=== PATIENT | male | born 1945 | race Caucasian/White ===

== ENCOUNTER 2018-11-25 07:24 | Day surgery (SDC) | payer MEDICARE, BC ==
[2018-11-22 13:38] VITALS: BMI 29.5
--- NOTE | 2018-11-25 10:18 | NM ---
LYMPHOSCINTIGRAPHY POSTERIOR LOWER BACK: 11/25/2018 HISTORY: Melanoma, posterior right back, which was removed previously. Lymphoscintigraphy was requested prior to larger excision. RADIOPHARMACEUTICAL: Technetium 99m filtered sulfur colloid 0.387 millicuries subcutaneously and intradermally, right post erior lower back, adjacent to scar from recent removal of melanoma. FINDINGS: Technetium 99m filtered sulfur colloid was administered in four separate aliquots, intradermally and subcutaneously, surrounding an area of scarring at the right posterior back and in the region of a pr evious melanoma removal. Immediate and 10-minute delayed images were obtained. Images were obtaine d from the level of the lower neck to the upper thighs, with anterior, posterior, and lateral views o btained. There is a focus of intense uptake of radiotracer seen on the 10-minute delayed image, which localize s to the right inguinal region. This area was marked. There is an additional smaller area of faint increased uptake of activity seen just posterior and superior to the activity in the right inguinal r egion, which was not delineated on the AP view and is unable to be localized adequately. However, th e area in the right inguinal region has more intense uptake and likely corresponds to a sentinel lymp h node. IMPRESSION: Focus of increased activity, localized to the right inguinal region, on 10-minute delayed images, lik margarita corresponding to a sentinel lymph node. As noted above, there is an additional faint area of inc reased activity, slightly more posterior and superior, on the lateral view, which is not able to be l ocalized on the frontal projection. POS: BRIAN
[2018-11-25] MEDS ORDERED: Heparin 5,000 UNITS/ML VIAL ONE (10:48)
[2018-11-25] MEDS ORDERED: Bupivacaine/Epinephrine 0.25% 30 ML VIAL ONE (11:29)
[2018-11-25] MEDS ORDERED: Bacitracin Zinc Ointment 30 gm TUBE ONE (11:29)
[2018-11-25] MEDS ORDERED: Isosulfan Blue 50 MG/5 ML VIAL ONE (11:33)
[2018-11-25] MEDS ORDERED: Fentanyl 250 MCG/5 ML VIAL ONE (11:34)
[2018-11-25] MEDS ORDERED: PROPOFOL 200 MG/20 ML VIAL ONE (15:11)
[2018-11-25] MEDS ORDERED: ePHEDrine 50 MG/ML VIAL ONE (15:11)
[2018-11-25] MEDS ORDERED: Ondansetron PF 4 MG/2 ML Vial ONE (15:11)
[2018-11-25] MEDS ORDERED: Dexamethasone 20 MG/5 ML VIAL ONE (15:11)
[2018-11-25] MEDS ORDERED: Rocuronium Bromide 10 MG/ML (10ML VIAL) ONE (15:11)
--- NOTE | 2018-11-26 01:49 | OP ---
DATE OF PROCEDURE: 11/25/18 PREOPERATIVE DIAGNOSIS: Melanoma of the back (Breslow thickness, 3 mm). PROCEDURES PERFORMED: 1. Injection of dye for identification of sentinel lymph node (38600). 2. Wide excision melanoma of back with adequate margins (6.2 cm including adequate margins). 3. Rhomboid flap of the back, 50 sq cm including recipient and donor defects ( [id number]). 4. [place] lymph node biopsy ([id number]). DESCRIPTION OF PROCEDURE: Following the induction of adequate anesthesia, the patient was prepped and draped in usual sterile fashion in the lateral position. Lymphazurin was injected intradermally around the patient's existing scar. Attention was turned to the patient's lower back melanoma site. This had been previously excised with positive lateral margins and clear deep margins. The Breslow thickness of the tumor was 3 mm. The area plus a 2 cm margin was widely excised down to and including underlying fascia. The defect could not be closed primarily. An inferiorly laterally based rhomboid flap was designed and elevated in a deep plane. It was rotated into defect and inset using 2-0 and 3-0 PDS followed by 3- 0 Monocryl suture. The field was copiously irrigated and inspected for meticulous hemostasis prior to placement of a drain and rotating and insetting of the flap. Attention was turned to the right inguinal lymph node basin. An incision was made. Dissection was guided by the Neoprobe to help identify the lymph node. The lymph nodes in question were blue as well. These were removed. The highest count was 620. The residual background count was less than 15. The field was again irrigated and closed with 3-0 PDS suture followed by 3-0 Monocryl suture. All incisions were dressed with Dermabond. The patient tolerated the procedure well. Job ID: [id number] [facility]
--- NOTE | 2018-11-26 15:46 | EKG ---
Test Reason : PREOP Blood Pressure : / mmHG Vent. Rate : 056 BPM Atrial Rate : 056 BPM P-R Int : 148 ms QRS Dur : 090 ms QT Int : 446 ms P-R-T Axes : 063 046 030 degrees QTc Int : 430 ms Sinus bradycardia with Premature ventricular complexes Otherwise normal ECG No previous ECGs available Confirmed by RAY DE LA FUENTE ([id number]) on 11/26/2018 3:46:33 PM Referred By: JIMENEZ Confirmed By:RAY DE LA FUENTE
== END 2018-11-25 17:06 | disposition home or self-care (01) ==
LOC: SDC 07:24
PROVIDERS: ATTEND Plastic Surgery
PROC: 07BH0ZX Excision of Right Inguinal Lymphatic, Open Approach, Diagnostic (ICD-10-PCS; principal; 2018-11-25)
PROC: 0HX6XZZ Transfer Back Skin, External Approach (ICD-10-PCS; 2018-11-25)
PROC: 0HB6XZZ Excision of Back Skin, External Approach (ICD-10-PCS; 2018-11-25)
DX: C43.59 Malignant melanoma of other part of trunk (principal); I10 Essential (primary) hypertension; E78.5 Hyperlipidemia, unspecified; Z79.82 Long term (current) use of aspirin; Z79.899 Other long term (current) drug therapy; Z88.2 Allergy status to sulfonamides
CPT/HCPCS: 14301; 38531; 38900; 78195; 88305; 88307; 88341; 88342; 93005; A9541; Q9968; 93010; J1100; J1644; J2405; J2704; J3010; J3490

== ENCOUNTER 2022-04-19 17:43 | Inpatient (IN) | payer MEDICARE, BC ==
[2022-04-19] MEDS ORDERED: Ondansetron ODT 4 MG TAB SL PRN (21:30)
[2022-04-19] MEDS ORDERED: Sodium Chloride 0.9% 1,000 ML IV SCH (21:30)
[2022-04-19] MEDS ORDERED: Ondansetron PF 4 MG/2 ML Vial IVP PRN (21:30)
[2022-04-19] MEDS ORDERED: Acetaminophen 325 MG TAB PO PRN (21:30)
[2022-04-19 21:42] VITALS: BMI 27.7
[2022-04-19] MEDS ORDERED: hydrOXYzine 25 MG TAB PO PRN (22:02)
[2022-04-19] MEDS ORDERED: Melatonin 3 MG TAB PO PRN (22:02)
[2022-04-19] MEDS ORDERED: Bisacodyl 10 MG SUPP PR PRN (23:52)
[2022-04-19] MEDS ORDERED: Bisacodyl 5 MG TAB PO PRN (23:52)
[2022-04-19] MEDS ORDERED: Acetaminophen 650 MG Suppository PR PRN (23:52)
[2022-04-19] MEDS ORDERED: Morphine 2 MG/ML VIAL SLOW IVP PRN (23:55)
[2022-04-19] MEDS ORDERED: hydrALAZINE 20 MG/ML VIAL SLOW IVP PRN (23:56)
[2022-04-20] MEDS ORDERED: Morphine 2 MG/ML VIAL SLOW IVP PRN (00:09)
[2022-04-20] MEDS: Sodium Chloride 0.9% 1,000 ML IV SCH ×2 (00:50→13:06)
[2022-04-20 05:29] LABS: #Lymphocytes 0.9 thou/uL (1.20-3.40); #Monocytes 0.3 thou/uL (0.11-0.59); #Neutrophils 10.7 thou/uL (1.40-6.50); %Eosinophils 0.2 % (0.0-10.0); %Lymphocytes 7.9 % (21.0-51.0); %Monocytes 2.2 % (0.0-10.0); %Neutrophils 89.8 % (42.0-75.0); Hemoglobin 13.4 g/dL (14.0-18.0); Mean Corpuscular HGB CONC 32.7 g/dL (32.0-36.0); Mean Corpuscular Hemoglobin 31.6 pg (27.0-31.0); Mean Corpuscular Volume 96.7 fL (78.0-98.0); Mean Platelet Volume 6.5 fL (7.4-10.4); Platelet Count 333 thou/uL (130-400); RBC Distribution Width 12.1 % (11.5-14.5); Red Blood Cell (RBC) Count 4.23 mill/uL (4.70-6.10); White Blood Cell (WBC) Count 11.9 thou/uL (4.8-10.8)
[2022-04-20 05:48] LABS: ALT (SGPT) 7 U/L (8-55); AST (SGOT) 13 U/L (5-34); Albumin 3.3 g/dL (3.4-4.8); Alkaline Phosphatase 85 U/L (40-110); Anion Gap 14 mmol/L (10-20); BUN (Urea Nitrogen) 15 mg/dL (8.4-25.7); Bilirubin, Total 1.9 mg/dL (0.2-1.2); Calc. Creatinine Clearance 125 mL/min (70-130); Calcium 8.6 mg/dL (7.8-10.44); Carbon Dioxide 22 mmol/L (23-31); Chloride 106 mmol/L (98-107); Estimated GFR 97; Globulin 3.5 g/dL (2.4-3.5); Glucose 137 mg/dL (83-110); Protein, Total 6.8 g/dL (5.8-8.1); Sodium 138 mmol/L (136-145)
[2022-04-20] MEDS: Dexamethasone 4 MG TAB PO SCH ×3 (05:48→17:09)
[2022-04-20] MEDS: Pantoprazole 40 MG VIAL IVP SCH (09:03)
[2022-04-20] MEDS ORDERED: Iopamidol 370 76% 100 ML VIAL ONE (16:02)
[2022-04-20] MEDS: Atorvastatin Calcium 10 MG TAB PO SCH (21:01)
[2022-04-20] MEDS: Amlodipine 5 MG TAB PO SCH (21:02)
[2022-04-20] MEDS: Lisinopril 20 MG TAB PO SCH (21:02)
[2022-04-21] MEDS: Dexamethasone 4 MG TAB PO SCH ×4 (00:18→17:10)
[2022-04-21] MEDS: Sodium Chloride 0.9% 1,000 ML IV SCH ×2 (05:43→20:04)
[2022-04-21 05:46] LABS: INR-International Normal Ratio 1.1; PTT 25.2 sec (22.9-36.1); Prothrombin Time 14.1 sec (12.0-14.7)
[2022-04-21] MEDS: Pantoprazole 40 MG VIAL IVP SCH (09:15)
[2022-04-21] MEDS ORDERED: Lidocaine 1% PF 5 ML VIAL ONE (10:56)
[2022-04-21] MEDS ORDERED: Sodium Bicarbonate 2.5 MEQ/5 ML VIAL ONE (10:56)
[2022-04-21] MEDS ORDERED: Magnevist 469MG/ML 20 ML VIAL ONE (16:12)
[2022-04-21] MEDS: Lisinopril 20 MG TAB PO SCH (20:03)
[2022-04-21] MEDS: Atorvastatin Calcium 10 MG TAB PO SCH (20:03)
[2022-04-21] MEDS: Amlodipine 5 MG TAB PO SCH (20:03)
[2022-04-22] MEDS: Dexamethasone 4 MG TAB PO SCH ×3 (00:54→11:57)
[2022-04-22 08:42] VITALS: BP 120/69; TEMP 98.1
[2022-04-22] MEDS: Pantoprazole 40 MG VIAL IVP SCH (08:56)
== END 2022-04-22 12:45 | disposition home or self-care (01) | DRG 823 ==
LOC: MSONC 17:43
PROVIDERS: ADMIT Internal Medicine; ATTEND Internal Medicine
PROC: 07BH3ZX Excision of Right Inguinal Lymphatic, Percutaneous Approach, Diagnostic (ICD-10-PCS; principal; 2022-04-21)
DX: C77.4 Secondary and unspecified malignant neoplasm of inguinal and lower limb lymph nodes (principal); G93.6 Cerebral edema; C79.31 Secondary malignant neoplasm of brain; C78.02 Secondary malignant neoplasm of left lung; C78.01 Secondary malignant neoplasm of right lung; Z20.822 Contact with and (suspected) exposure to COVID-19; E78.5 Hyperlipidemia, unspecified; I10 Essential (primary) hypertension; M19.90 Unspecified osteoarthritis, unspecified site; C43.9 Malignant melanoma of skin, unspecified; E78.00 Pure hypercholesterolemia, unspecified; Z87.442 Personal history of urinary calculi; Z88.2 Allergy status to sulfonamides; Z79.899 Other long term (current) drug therapy; Z79.82 Long term (current) use of aspirin; Z87.898 Personal history of other specified conditions; Z85.820 Personal history of malignant melanoma of skin; Z90.89 Acquired absence of other organs
CPT/HCPCS: 36415; 38505; 70553; 71260; 80053; 85025; 85610; 85730; 88305; 88333; 88334; 88341; 88342; A9579; C9113; J7050; J8540; Q9967; U0003; U0005